=== PATIENT | male | born 1980 | race African-American/Black ===

== ENCOUNTER 2025-04-11 07:20 | Emergency (ER) | payer MEDICAID ==
[~2025-04-11] VITALS: Ht 172.7 cm; Wt 57.0 kg
[~2025-04-11 07:20] MED LIST: FAMO-287 MT; PROT40 MT; SUCR1TAB MT
[2025-04-11 07:25] VITALS: O2SAT 99
[2025-04-11] MEDS: ONDANSETRON 4MG ODT PO ONE (08:15)
[2025-04-11] MEDS: HALOPERIDOL LACTATE 5MG/ML VIAL IM ONE (08:16)
[2025-04-11] MEDS: MAGNESIUM/ALUMINUM HYDROXIDE/SIMETHICONE 30ML UDC PO ONE (08:16)
[2025-04-11] MEDS: FAMOTIDINE 20MG TABLET PO ONE (08:16)
[2025-04-11 08:35] LABS: BASOPHILS % 0.5 % (0.0-2.0); EOSINOPHILS % 1.0 % (0.0-5.0); HEMATOCRIT. 51.8 % (42.0-52.0); HEMOGLOBIN. 16.9 g/dL (14.0-18.0); LYMPHOCYTES % 26.9 % (20.0-50.0); MEAN PLATELET VOLUME 9.5 fl (7.4-10.4); MONOCYTES % 13.1 % (2.0-8.0); NEUTROPHILS % 58.5 % (40.0-76.0); PLATELET 260 x1000/uL (130-400); RED BLOOD CELL COUNT 6.81 mill/uL (4.7-6.1); RED CELL DISTRIBUTION WIDTH 15.6 % (11.6-14.6)
[2025-04-11] MEDS: SODIUM CHLORIDE 0.9% 1,000 ML IV ONE ×2 (08:40→09:55)
[2025-04-11 08:49] LABS: UREA NITROGEN BLOOD 46 mg/dL (9-23)
[2025-04-11 08:51] LABS: ASPARTATE AMINOTRANSFERASE 21 IU/L (<34); BILIRUBIN DIRECT 0.2 mg/dL (<=3.0); BILIRUBIN TOTAL 0.9 mg/dL (0.1-1.0); PROTEIN TOTAL 8.9 g/dL (6.0-8.3)
[2025-04-11 08:52] LABS: CLARITY URINE CLOUDY (CLEAR); COLOR URINE DARK YELLOW (YELLOW); GLUCOSE URINE NEGATIVE (NEGATIVE); KETONES URINE TRACE (NEGATIVE); LEUKOCYTE ESTERASE URINE TRACE (NEGATIVE); NITRITE URINE NEGATIVE (NEGATIVE); OCCULT BLOOD URINE NEGATIVE (NEGATIVE); PH URINE 5.0 (4.5-8.0); PROTEIN URINE 1+ (NEGATIVE); SPECIFIC GRAVITY URINE 1.022 (1.005-1.030); UROBILINOGEN URINE 1.0 E.U./dL (0.2-1.0)
[2025-04-11 09:04] LABS: CREATININE 2.9 mg/dL (0.6-1.3)
[2025-04-11 09:15] LABS: *AMPHETAMINES SCREEN URINE NEGATIVE (NEGATIVE); *BARBITURATES SCREEN URINE NEGATIVE (NEGATIVE); *BENZODIAZEPINES SCREEN URINE NEGATIVE (NEGATIVE); *COCAINE SCREEN URINE NEGATIVE (NEGATIVE); CANNABINOID URINE SCREEN PRESUMPTIVE POSITIVE (NEGATIVE); ECSTASY MDMA SCREEN URINE NEGATIVE (NEGATIVE); METHADONE URINE SCREEN NEGATIVE (NEGATIVE); OPIATES URINE SCREEN NEGATIVE (NEGATIVE); PHENCYCLIDINE URINE SCREEN NEGATIVE (NEGATIVE)
[2025-04-11 09:17] LABS: RBC URINE 0-2 /hpf (0-2); SQUAMOUS EPITHELIAL CELL URINE RARE /lpf (RARE/1+)
[2025-04-11 09:18] LABS: BACTERIA URINE TRACE; YEAST URINE NONE SEEN
[2025-04-11 10:26] VITALS: BP 122/86; PULSE 88; RESP 18; TEMP 37.1; O2SAT 97
== END 2025-04-11 10:39 | disposition home or self-care (01) ==
LOC: ER 07:20
DX: R11.16 Cannabis hyperemesis syndrome (principal); N17.9 Acute kidney failure, unspecified; F12.90 Cannabis use, unspecified, uncomplicated; Z79.899 Other long term (current) drug therapy
CPT/HCPCS: 80076; 80305; 80048; 81003; 80320; 83690; 85025; 36415; 96360; 96372; 99284; Q0162; J1630; J7030; G0480